=== PATIENT | male | born 1970 | race Caucasian/White ===

== ENCOUNTER 2017-01-07 08:58 | Day surgery (SDC) | payer OTHER ==
[~2017-01-07 08:58] MED LIST: Lactated Ringers 1,000 ML IV SCH; Lidocaine 1%/Sod Bicarbonate in NS 8.4% 1 ML Syringe IV PRN; Sodium Chloride 0.9% 10 ML Syringe FLUSH PRN
--- NOTE | 2017-01-07 09:53 | PCM.PREANE ---
Preanesthetic Assessment - Anesthesia/Transfusion/Family Hx Anesthesia History: Prior Anesthesia Without Reaction Family History of Anesthesia Reaction: No Transfusion History: No Prior Transfusion(s) - Review of Systems General: No Symptoms Pulmonary: No Symptoms Cardiovascular: No Symptoms Gastrointestinal: No symptoms Neurological: No Symptoms Other: Reports: None - Physical Assessment NPO Status Date: 01/06/17 NPO Status Time: 23:00 Pulse: 73 O2 Sat by Pulse Oximetry: 96 Respiratory Rate: 16 Blood Pressure: 127/73 Temperature: 36.5 C Vital Signs: Last Vital Signs Temp 36.5 C 01/07/17 09:00 Pulse 73 01/07/17 09:00 Resp 16 01/07/17 09:00 BP 127/73 01/07/17 09:00 Pulse Ox 96 01/07/17 09:00 Height: 1.85 m Weight: 128.82 kg ASA Class: 2 Mental Status: Alert & Oriented x3 Dentition: Reports: Dentures (upper and lower) Thyro-Mental Finger Breadths: 2 Mouth Opening Finger Breadths: 2 ROM/Head Extension: Full Lungs: Clear to auscultation, Normal respiratory effort Cardiovascular: Regular Rate, Regular Rhythm, No Murmurs - Allergies Allergies/Adverse Reactions: Allergies Allergy/AdvReac Type Severity Reaction Status Date / Time mold Allergy Cannot Verified 01/06/17 14:47 Remember pollen extracts Allergy Cannot Verified 01/06/17 14:47 Remember - Anesthesia Plan Pre-Op Medication Ordered: None - Acknowledgements Anesthesia Type Planned: General Anesthesia Pt an Appropriate Candidate for the Planned Anesthesia: Yes Alternatives and Risks of Anesthesia Discussed w Pt/Guardian: Yes Pt/Guardian Understands and Agrees with Anesthesia Plan: Yes PreAnesthesia Questionnaire HEENT History: Reports: Impaired vision, Other (see below) Other HEENT History: wears glasses, dentures Cardiovascular History: Reports: None Respiratory History: Reports: None Genitourinary History: Reports: None PUBLIC INFORMATION COORDINATOR History: Reports: None Musculoskeletal History: Reports: Other (see below) Other Musculoskeletal History: L distal biceps tendon rupture Neurological History: Reports: None Psychiatric History: Reports: None Endocrine/Metabolic History: Reports: None Hematologic History: Reports: None Immunologic History: Reports: None Oncologic (Cancer) History: Reports: None Dermatologic History: Reports: None - Past Surgical History Head Surgeries/Procedures: Reports: None GI Surgical History: Reports: Cholecystectomy, Colonoscopy, EGD Musculoskeletal Surgical History: Reports: Other (see below) Other Musculoskeletal Surgeries/Procedures:: ORIF to R forearm with 2 plates - SUBSTANCE USE Smoking Status *Q: Never Smoker Tobacco Use Within Last Twelve Months: No Second Hand Smoke Exposure: No Days Per Week of Alcohol Use: 1 Number of Drinks Per Day: 1 Total Drinks Per Week: 1 Recreational Drug Use History: No - HOME MEDS Home Medications: Home Meds Cyclobenzaprine [Flexeril] 10 mg PO Q8H PRN #40 tablet 01/07/17 [Rx] Hydrocodone/Acetaminophen [Herndon 5-325 Tablet] 1 - 2 each PO Q6H PRN #40 tablet 01/07/17 [Rx] - CURRENT (IN HOUSE) MEDS Current Meds: Current Medications Lactated Ringer's (Ringers, Lactated) 1,000 mls @ 125 mls/hr IV ASDIRECTED SONJA Stop: 01/07/17 23:00 Last Admin: 01/07/17 09:15 Dose: 125 mls/hr Lidocaine/Sodium Bicarbonate (Buffered Lidocaine 1% In Ns 8.4%) 0.25 ml IV ONETIME PRN PRN Reason: Prior to IV Start Stop: 01/07/17 18:00 Last Admin: 01/07/17 09:15 Dose: 0.25 ml Sodium Chloride (Saline Flush) 10 ml FLUSH ASDIRECTED PRN PRN Reason: Keep Vein Open Stop: 01/07/17 18:00
[2017-01-07] MEDS ORDERED: Bupivacaine 0.25% 10 ML SDV ONE (10:15)
[2017-01-07] MEDS ORDERED: Propofol 200 MG/20 ML SDV ONE (10:23)
[2017-01-07] MEDS ORDERED: Midazolam 1 MG/ML 2 ML SDV ONE (10:23)
[2017-01-07] MEDS ORDERED: fentaNYL 250 MCG/5 ML SDV ONE (10:23)
[2017-01-07] MEDS ORDERED: Ondansetron 4 MG/2 ML SDV ONE (10:25)
[2017-01-07] MEDS ORDERED: Lidocaine 1% 4 ML ONE (10:25)
[2017-01-07] MEDS ORDERED: Dexamethasone 4 MG/ML 5 ML MDV ONE (10:25)
[2017-01-07] MEDS ORDERED: ceFAZolin 1 GM Vial ONE (10:26)
[2017-01-07] MEDS ORDERED: diphenhydrAMINE 50 MG/ML SDV IVPUSH PRN (12:27)
[2017-01-07] MEDS ORDERED: Ondansetron 4 MG/2 ML SDV IVPUSH PRN (12:27)
[2017-01-07] MEDS ORDERED: Meperidine PF 50 MG/ML Syringe IVPUSH PRN (12:27)
--- NOTE | 2017-01-07 12:48 | CR ---
Left elbow Three fluoroscopic spot views were obtained of the left elbow during biceps tendon repair utilizing C-arm device. Fluoroscopy time given as 8.5 seconds. Impression: 1. Findings as noted above. Diagnostic code #2
--- NOTE | 2017-01-07 12:54 | PCM.POSTAN ---
POST ANESTHESIA ASSESSMENT - MENTAL STATUS Mental Status: alert, oriented - VITAL SIGNS Pulse Rate: 81 SaO2: 96 Resp Rate: 12 Blood Pressure: 140/94 Temperature: 36.7 C - RESPIRATORY Respiratory Status: respiratory rate WNL, airway patent, O2 saturation stable, supplemental oxygen - CARDIOVASCULAR CV Status: pulse rate WNL, blood pressure stable - GASTROINTESTINAL GI Status: no symptoms - PAIN Pain Score: 3 - POST OP HYDRATION Hydration Status: adequate & stable
[2017-01-07] MEDS: HYDROmorphone 0.5 MG/0.5 ML Syringe IVPUSH PRN ×2 (12:59→13:16)
[2017-01-07] MEDS: fentaNYL 100 MCG/2 ML SDV IVPUSH PRN ×3 (13:02→13:29)
[2017-01-07] MEDS ORDERED: Acetaminophen/HYDROcodone 325-5 MG Tab PO PRN (13:34)
--- NOTE | 2017-01-07 13:39 | PCM48HPAN ---
Post Anesthesia Note - EVALUATION WITHIN 48HRS OF ANESTHETIC Vital Signs in Normal Range: Yes Patient Participated in Evaluation: Yes Respiratory Function Stable: Yes Airway Patent: Yes Cardiovascular Function Stable: Yes Hydration Status Stable: Yes Pain Control Satisfactory: Yes Nausea and Vomiting Control Satisfactory: Yes Mental Status Recovered: Yes
[2017-01-07 14:33] VITALS: BP 122/58
--- NOTE | 2017-01-07 17:40 | PCM.OPNOTE ---
- General Post-Op/Procedure Note Date of Surgery/Procedure: 01/07/17 Operative Procedure(s): left distal tendon biceps repair Pre Op Diagnosis: left distal biceps tendon rupture Post-Op Diagnosis: Same Anesthesia Technique: General LMA, Local Primary Surgeon: Randy Miller Anesthesia Provider: He Hinson Storage Garage Manager: Annamaria Nagy in mLs: 5 Complications: None Condition: Good Free Text/Narrative:: Intake & Output 01/07/17 01/07/17 01/07/17 06:59 14:59 22:59 Intake Total 850 Balance 850
--- NOTE | 2017-01-07 19:03 | OR ---
DATE OF OPERATION: 01/07/2017 SURGEON: Randy Miller MD OPERATION PERFORMED: Left distal biceps tendon repair. PREOPERATIVE DIAGNOSIS: Left distal biceps tendon rupture. POSTOPERATIVE DIAGNOSIS: Left distal biceps tendon rupture. ANESTHESIA: Technique, general LMA with local prep. SURGEON: Randy Miller M.D. ANESTHESIA PROVIDER: Dr. He Hinson. LEARNING DESIGNER: Annamaria Nagy PA-C ESTIMATED BLOOD LOSS: Less than 5 mL. COMPLICATIONS: None. CONDITION: Stable. DESCRIPTION OF PROCEDURE: The patient was identified in the preop holding area, proper site was marked and identified by the surgeon. The patient was taken back to operating theater where after adequate anesthesia, the patient was placed supine on a flat top table. The left upper extremity had a nonsterile tourniquet applied and was then sterilely prepped and draped in the usual sterile fashion. OR time-out was performed. The patient received 2 grams of IV Ancef. At this time, the left upper extremity was exsanguinated. Tourniquet was insufflated 250 mmHg. Standard transverse incision was made directly over the radial tuberosity. Blunt dissection was taken down to the area of the lacertus fibrosis and bicipital groove. The lateral antebrachial cutaneous nerve was identified and retracted. The distal biceps tendon was then identified and was retracted out of the wound bed. There was noted to have significant degeneration. The end was then trimmed. A FiberWire loop was then placed through the end roughly last 2 cm of the tendon. Next, attention was turned to the radial side. Homans were placed on both the radial and ulnar side of the radius. The direct footprint was visualized from previous. The guidepin was then placed in the center of the radial tuberosity and the footprint and was placed bicortically in a 30-degree radial angle. At this time, the over reamer for 8 mm drill bit was then reamed and found to be adequate through one cortex. Next, the Endobutton was placed on the distal biceps and Endobutton was shuttled through the contralateral cortex of the radius. The tendon end was then shuttled into the drilled 8 mm hole. There was found to have adequate fixation. A knot was tied over this to hold it provisionally. Next, the 6 mm Arthrex anchor was then anchored on the radial side to push the tendon more ulnar. I was found to have adequate fixation under direct visualization. At this time, the guide pin for the screw was then removed. A knot was tied over the top of the Biofix tenodesis screw. Adequate saline was then irrigated through the wound. C-arm fluoroscopy showed the Endobutton was flipped on the radius. 3-0 Vicryl was used subcutaneously and Monocryl was used for the skin along with Dermabond. The patient was placed in a posterior slab splint and sent to PACU in stable condition. MMODAL /[id number]
== END 2017-01-07 14:45 | disposition home or self-care (01) ==
LOC: JD.SDS 08:58
PROVIDERS: ATTEND Orthopaedic Surgery
DX: S46.112A Strain of muscle, fascia and tendon of long head of biceps, left arm, initial encounter (principal); K21.9 Gastro-esophageal reflux disease without esophagitis; Z91.09 Other allergy status, other than to drugs and biological substances; J30.1 Allergic rhinitis due to pollen; Z90.49 Acquired absence of other specified parts of digestive tract; Z98.890 Other specified postprocedural states; Z79.899 Other long term (current) drug therapy; Z68.39 Body mass index [BMI] 39.0-39.9, adult; Z78.9 Other specified health status; Y93.83 Activity, rough housing and horseplay
CPT/HCPCS: 24342; 76000; A9270; J0690; J1100; J1170; J2250; J2405; J3010; J7120; 01710; C1776; J2704

== ENCOUNTER 2018-11-12 17:57 | Emergency (ER) | payer BC, OTHER ==
[2018-11-12 18:09] VITALS: BP 153/94
[2018-11-12] MEDS ORDERED: Sodium Chloride 0.9% 10 ML Syringe FLUSH PRN (18:33)
[2018-11-12] MEDS ORDERED: Alum Hydrox/Mag Hydrox/Simeth 30 ML, Lidocaine 2% 15 ML PO ONE ×2 (19:41)
--- NOTE | 2018-11-12 19:59 | EDM.PDOC ---
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 He describes the pain as a dull pain that feels "tight" and "heavy" at times and 4 hours ago he did feel he had sharp "off and on" pain w/ arm pain and weakened legs. He has had similar pain in the past. He does not have a known cardiac history, but did have a calcium scan that showed "calcium in the Right heart". He also has family h/o of mother dying of PA at 50yo. He states he is under extreme stress at work and can "feel my blood pressure rising during meetings". His states he barely relaxes and is "always on the phone". He has a h/o cholecystectomy 2-3 years ago and Endoscopy 3 years ago and was diagnosed with GERD. He is currently not on any medication for GERD but does take Pepcid and Tums. No other symptoms at this time. Mid-Anterior Chest Pain Score (Numeric/FACES): 1 - Related Data Allergies Allergy/AdvReac Type Severity Reaction Status Date / Time mold Allergy Cannot Verified 11/12/18 18:09 Remember pollen extracts Allergy Cannot Verified 11/12/18 18:09 Remember Home Meds: Home Meds Aspirin [Ecotrin] 81 mg PO DAILY 11/12/18 [History] Rosuvastatin [Crestor] 10 mg PO DAILY 11/12/18 [History] Past Medical History HEENT History: Reports: Impaired Vision Other HEENT History: wears glasses, dentures Cardiovascular History: Reports: High Cholesterol Respiratory History: Reports: None Genitourinary History: Reports: None MARKETING/SALES PERSON History: Reports: None Musculoskeletal History: Reports: Other (See Below) Other Musculoskeletal History: L distal biceps tendon rupture Neurological History: Reports: None Psychiatric History: Reports: None Endocrine/Metabolic History: Reports: None Hematologic History: Reports: None Immunologic History: Reports: None Oncologic (Cancer) History: Reports: None Dermatologic History: Reports: None - Past Surgical History Head Surgeries/Procedures: Reports: None GI Surgical History: Reports: Cholecystectomy, Colonoscopy, EGD Social & Family History - Tobacco Use Smoking Status *Q: Never Smoker - Caffeine Use Caffeine Use: Reports: Coffee - Recreational Drug Use Recreational Drug Use: No ED ROS GENERAL - Review of Systems Review Of Systems: ROS reveals no pertinent complaints other than HPI. ED EXAM, GENERAL - Physical Exam Exam: See Below Exam Limited By: No Limitations General Appearance: Alert, WD/WN, No Apparent Distress Eye Exam: Bilateral Eye: EOMI, Normal Inspection, PERRL Ears: Normal External Exam, Hearing Grossly Normal Nose: Normal Inspection, Normal Mucosa, No Blood Throat/Mouth: Normal Inspection, Normal Lips, Normal Teeth, Normal Gums, Normal Oropharynx, Normal Voice, No Airway Compromise Head: Atraumatic, Normocephalic Neck: Normal Inspection, Supple, Non-Tender, Full Range of Motion Respiratory/Chest: No Respiratory Distress, Lungs Clear, Normal Breath Sounds, No Accessory Muscle Use, Chest Non-Tender Cardiovascular: Normal Peripheral Pulses, Regular Rate, Rhythm, No Edema, No Gallop, No JVD, No Murmur, No Rub GI/Abdominal: Normal Bowel Sounds, Soft, Non-Tender, No Organomegaly, No Distention, No Abnormal Bruit, No Mass Back Exam: Normal Inspection, Full Range of Motion, NT Extremities: Normal Inspection, Normal Range of Motion, Non-Tender, Normal Capillary Refill, No Pedal Edema Psychiatric: Normal Affect, Normal Mood Skin Exam: Warm, Dry, Intact, Normal Color, No Rash EKG INTERPRETATION EKG Date: 11/12/18 Time: 18:03 Rhythm: NSR Mcgrath: Normal P-Wave: Present QRS: Normal ST-T: Normal QT: Normal Comparison: NA - No Prior EKG Course - Vital Signs Last Recorded V/S: Last Vital Signs Temp 98.4 F 11/12/18 18:06 Pulse 70 11/12/18 18:06 Resp 13 11/12/18 18:06 BP 153/94 H 11/12/18 18:06 Pulse Ox 100 11/12/18 18:06 - Orders/Labs/Meds Orders: Active Orders 24 hr Category Date Time Status EKG 12 Lead [EKG Documentation Completion] [RC] STAT Care 11/12/18 18:39 Active Peripheral IV Care [RC] . DIRECTED Care 11/12/18 18:35 Active Chest 1V Frontal [CR] Stat Exams 11/12/18 18:36 Taken Sodium Chloride 0.9% [Saline Flush] Med 11/12/18 18:33 Active 10 ml FLUSH ASDIRECTED PRN Peripheral IV Insertion Adult [OM.PC] Routine Oth 11/12/18 18:33 Ordered Medication Orders Sodium Chloride (Saline Flush) 10 ml FLUSH ASDIRECTED PRN PRN Reason: Keep Vein Open Last Admin: 11/12/18 19:59 Dose: 10 ml Labs: Laboratory Tests 11/12/18 11/12/18 Range/Units 18:10 18:10 WBC 7.67 (4.23-9.07) K/mm3 RBC 5.13 (4.63-6.08) M/mm3 Hgb 15.7 (13.7-17.5) gm/L Hct 46.5 (40.1-51.0) % MCV 90.6 (79.0-92.2) fl MCH 30.6 (25.7-32.2) pg MCHC 33.8 (32.2-35.5) g/dl RDW Std Deviation 41.2 (35.1-43.9) fL Plt Count 155 L (163-337) K/mm3 MPV 12.1 (9.4-12.3) fl Neut % (Auto) 68.1 H (34.0-67.9) % Lymph % (Auto) 20.2 L (21.8-53.1) % [place] % (Auto) 9.9 (5.3-12.2) % Eos % (Auto) 1.4 (0.8-7.0) Baso % (Auto) 0.3 (0.1-1.2) % Neut # (Auto) 5.22 (1.78-5.38) K/mm3 Lymph # (Auto) 1.55 (1.32-3.57) K/mm3 [place] # (Auto) 0.76 (0.30-0.82) K/mm3 Eos # (Auto) 0.11 (0.04-0.54) K/mm3 Baso # (Auto) 0.02 (0.01-0.08) K/mm3 Sodium 140 (136-145) mEq/L Potassium 4.0 (3.5-5.1) mEq/L Chloride 105 (98-107) mEq/L Carbon Dioxide 30 (21-32) mEq/L Anion Gap 9.0 (5-15) BUN 17 (7-18) mg/dL Creatinine 1.3 (0.7-1.3) mg/dL Est Cr Clr Drug Dosing 76.83 mL/min Estimated GFR (MDRD) 58 (>60) mL/min BUN/Creatinine Ratio 13.1 L (14-18) Glucose 111 H (74-106) mg/dL Calcium 9.1 (8.5-10.1) mg/dL Total Bilirubin 0.4 (0.2-1.0) mg/dL AST 27 (15-37) U/L ALT 39 (16-63) U/L Alkaline Phosphatase 111 (46-116) U/L CK-MB (CK-2) 1.6 (0-3.6) ng/ml Troponin I < 0.017 (0.00-0.056) ng/mL Total Protein 7.2 (6.4-8.2) g/dl Albumin 3.6 (3.4-5.0) g/dl Globulin 3.6 gm/dL Albumin/Globulin Ratio 1.0 (1-2) Meds: Medications Generic Name Dose Route Start Last Admin Trade Name Freq PRN Reason Stop Dose Admin Sodium Chloride 10 ml 11/12/18 18:33 11/12/18 19:59 Saline Flush FLUSH 10 ml ASDIRECTED PRN Administration Keep Vein Open Discontinued Medications Generic Name Dose Route Start Last Admin Trade Name Freq PRN Reason Stop Dose Admin Al Hydroxide/Mg Hydroxide 30 0 ml 11/12/18 19:41 11/12/18 19:59 ml/ Lidocaine HCl 15 ml PO 11/12/18 19:42 45 ml ONETIME ONE Administration - Re-Assessments/Exams Free Text/Narrative Re-Assessment/Exam: 11/12/18 18:33 Ordered CBC, CMP, Troponin, CKMB, Chest Xray, 12 lead EKG 11/12/18 19:00 CBC and CMP WNL. Troponin <0.017 CKMB 1.6 11/12/18 19:[address] Soto and myself, nothing acute seen. 11/12/18 20:[address] Ramsey and myself, nothing acute appreciated. At this time, will order GI Cocktail to see if provides relief. Cardiac workup is negative and this is likely a GERD issue based off history, exam and labs. He was diagnosed with GERD 3 years ago and has not started any PPI or H2B. Recommend starting OTC Prilosec and following up with GI specialist and PCP. Pt and agree with this plan. He will be discharged after GI cocktail. Departure - Departure Time of Disposition: 20:05 Disposition: Home, Self-Care 01 Condition: Good Clinical Impression: Gastroesophageal reflux disease Instructions: Food Choices for Gastroesophageal Reflux Disease, Adult, Easy-to- Read, Gastroesophageal Reflux Disease, Adult, [id number] Referrals: Roger Varma Jr, MD [Primary Care Provider] - Forms: ED Department Discharge Additional Instructions: You were seen in the ED today for chest pain x 1 day. Based off your history, exam, labs and chest xray, this seems to be a gastric reflux issue. Your cardiac workup was negative and there was nothing acute seen on Chest xray. It is recommended you start taking OTC Prilosec everyday for relief and to follow up with your primary care provider and a GI specialist. Also recommend reducing stress in your life, finding something relaxing to do and to continue practicing remaining calm in stressful situations. Please return to ED if new or worsening symptoms. - My Orders Last 24 Hours: My Active Orders 11/12/18 18:33 Sodium Chloride 0.9% [Saline Flush] 10 ml FLUSH ASDIRECTED PRN Peripheral IV Insertion Adult [OM.PC] Routine 11/12/18 18:35 Peripheral IV Care [RC] . DIRECTED 11/12/18 18:36 Chest 1V Frontal [CR] Stat 11/12/18 18:39 EKG 12 Lead [EKG Documentation Completion] [RC] STAT - Assessment/Plan Last 24 Hours: My Active Orders 11/12/18 18:33 Sodium Chloride 0.9% [Saline Flush] 10 ml FLUSH ASDIRECTED PRN Peripheral IV Insertion Adult [OM.PC] Routine 11/12/18 18:35 Peripheral IV Care [RC] . DIRECTED 11/12/18 18:36 Chest 1V Frontal [CR] Stat 11/12/18 18:39 EKG 12 Lead [EKG Documentation Completion] [RC] STAT
--- NOTE | 2018-11-13 08:12 | CR ---
Chest: Portable view of the chest was obtained. Comparison: No prior chest x-ray. Heart size and mediastinum are within normal limits for portable technique. Lungs are clear. Bony structures are grossly intact. Impression: 1. Nothing acute is seen on portable chest x-ray. Diagnostic code #1
== END 2018-11-12 20:31 | disposition home or self-care (01) ==
LOC: JD.ED 17:57
DX: K21.9 Gastro-esophageal reflux disease without esophagitis (principal); Z91.048 Other nonmedicinal substance allergy status
CPT/HCPCS: 36415; 71045; 80053; 82553; 84484; 85025; 93005; 99285; A9270; 93010; 99284

== ENCOUNTER 2022-01-28 12:41 | Emergency (ER) | payer OTHER ==
[2022-01-28 12:54] VITALS: BP 148/88; PULSE 76
[2022-01-28 13:54] LABS: HEMOGLOBIN A1C 5.4 %
[2022-01-28 15:30] LABS: ESTIMATED GFR > 60 mL/min (>60)
== END 2022-01-28 16:30 | disposition home or self-care (01) ==
LOC: JD.ED 12:41
DX: R07.89 Other chest pain (principal); R06.02 Shortness of breath; E78.00 Pure hypercholesterolemia, unspecified; I10 Essential (primary) hypertension; Z90.49 Acquired absence of other specified parts of digestive tract; Z79.899 Other long term (current) drug therapy
CPT/HCPCS: 36415; 71045; 71045-26; 80053; 82553; 83036; 83735; 83880; 84484; 85025; 85379; 85610; 85730; 86140; 93005; 93010; 99284; 99285-25

== ENCOUNTER 2025-04-19 18:59 | Emergency (ER) | payer OTHER ==
[2025-04-19 19:38] LABS: BASOPHILS ABSOLUTE AUTO 0.1 K/mm3 (0.0-0.2); BASOPHILS PERCENT AUTO 0.6 % (0.0-1.0); EOSINOPHILS ABSOLUTE AUTO 0.5 K/mm3 (0.0-0.4); EOSINOPHILS PERCENT AUTO 5.8 % (0.0-6.0); IMMATURE GRAN ABSOLUTE AUTO 0.03 K/mm3 (0.00-0.05); IMMATURE GRAN PERCENT AUTO 0.3 % (0.0-0.4); LYMPHOCYTES ABSOLUTE AUTO 1.5 K/mm3 (1.0-4.8); LYMPHOCYTES PERCENT AUTO 16.9 % (24.0-44.0); MEAN PLATELET VOLUME 11.6 fl (9.4-12.4); MONOCYTES ABSOLUTE AUTO 0.8 K/mm3 (0.0-0.8); MONOCYTES PERCENT AUTO 8.9 % (0.0-8.0); NEUTROPHILS ABSOLUTE AUTO 5.8 K/mm3 (1.8-7.7); NEUTROPHILS PERCENT AUTO 67.5 % (41.0-71.0); NRBC ABSOLUTE 0.00 (0.00-0.02); NRBC PERCENT 0.0 % (0.0-0.2); PLATELET COUNT,PLT 163 K/mm3 (150-400); RED BLOOD CELL COUNT 4.83 M/mm3 (4.52-5.90); WHITE BLOOD CELL COUNT,WBC 8.58 K/mm3 (3.9-11.3)
[2025-04-19 19:57] LABS: A/G RATIO 1.0 (1-2); ALANINE AMINOTRANSFERASE,ALT 25.0 U/L (16-63); ASPARTATE AMNIOTRANSFERASE,AST 21.0 U/L (15-37); BILIRUBIN TOTAL 0.2 mg/dL (0.2-1.0); BLOOD UREA NITROGEN,BUN 18.0 mg/dL (7-18); CARBON DIOXIDE,CO2 27.0 mEq/L (21-32); CHLORIDE,CL 106.0 mEq/L (98-107); CREATININE 1.0 mg/dL (0.7-1.3); EST CRCL DRUG DOSING (CG) 93.22 mL/min; ESTIMATED GFR 88.0 mL/min (>60); GLUCOSE RANDOM 86.0 mg/dL (70-99); POTASSIUM,K 3.9 mEq/L (3.5-5.1); PROTEIN TOTAL,TP 6.5 g/dl (6.4-8.2); SODIUM,NA 141.0 mEq/L (136-145); TROPONIN I HIGH SENSITIVITY 6.0 pg/mL (<=76)
[2025-04-19 20:51] VITALS: BP 105/76; PULSE 73
== END 2025-04-19 20:45 | disposition home or self-care (01) ==
LOC: JD.ED 18:59
DX: R06.02 Shortness of breath (principal); E78.00 Pure hypercholesterolemia, unspecified; Z91.09 Other allergy status, other than to drugs and biological substances; Z79.899 Other long term (current) drug therapy; Z86.16 Personal history of COVID-19
CPT/HCPCS: 36415; 71046; 80053; 84484; 85025; 85379; 86140; 93005; 94640; 99285; J3535; 99284; A9270-GY